=== PATIENT | female | born 1960 | race African-American/Black ===

== ENCOUNTER → 2016-11-13 | Outpatient (CLI) | payer OTHER ==
--- NOTE | 2016-11-13 12:54 | KCIC ---
PROCEDURE Three-view bilateral foot HISTORY Bilateral foot pain for a few weeks. COMPARISON None FINDINGS Left foot No bone lesion. No acute fracture. Joint spaces and alignment are intact. Small plantar calcaneal enthesophyte noted Right foot No acute fracture or aggressive bone destruction. Joint spaces and alignment are intact. Small plantar calcaneal enthesophyte is noted. IMPRESSION No acute fracture or aggressive bone destruction. Electronically signed by: Facundo Hernandez MD (Nov 13, 2016 12:53:24)
== END | disposition home or self-care (01) ==
LOC: KCIC 11:13
PROVIDERS: ATTEND Internal Medicine Rheumatology
DX: M25.572 Pain in left ankle and joints of left foot (principal); M25.571 Pain in right ankle and joints of right foot
CPT/HCPCS: 73630